=== PATIENT | female | born 1935 | race Caucasian/White ===

== ENCOUNTER 2021-11-26 06:48 | Day surgery (SDC) | payer MEDICARE, SELFPAY ==
[2021-11-21 11:01] VITALS: BMI 23.4
--- NOTE | 2021-11-23 12:52 | MHC.SHP ---
Pre-Procedural Eval Section A Date of Service: 11/23/21 The patient is an INPATIENT: No Changes since office visit: No Cold of Flu in the past 2 weeks, No New Medical Problems, No Changes in Medication and No Patient answered all questions The History & Physical has been completed within 30 days and I have reviewed it.: Yes Section B Chief Complaint: cataract Allergies: Allergies Allergy/AdvReac Type Severity Reaction Status Date / Time omeprazole Allergy Rash Verified 11/21/21 11:00 Plan Diagnosis/Plan: Unchanged I have reviewed the history and physical and performed a pertinent physical examination on my patient. No changes have occurred unless specified.
[2021-11-26 08:01] VITALS: BP 202/86; PULSE 68; RESP 16; TEMP 36.6; O2SAT 96
[2021-11-26] MEDS: Tetracaine HCl/PF 0.5% Oph Sol 4 ML DROPS 1 DROP EYE-RIGHT (08:08)
[2021-11-26] MEDS: Lactated Ringers 500 ML 50 ML IVCONT (08:09)
[2021-11-26] MEDS: Cyclopentolate 1 % Ophth Sol 2 ML DRPBTL 1 DROP EYE-RIGHT ×3 (08:10→08:22)
[2021-11-26] MEDS: Tropicamide 1 % Ophth Sol 3 ML BTL 1 DROP EYE-RIGHT ×3 (08:12→08:22)
--- NOTE | 2021-11-26 08:13 | HO.ANESPROP2 ---
HPI - Anesthesia Eval Consult details Narrative: right eyebcataract PMFSH Past Medical History Medical History Eczema GERD (gastroesophageal reflux disease) Hard of hearing History of colon cancer HTN (hypertension) IBS (irritable bowel syndrome) Osteoarthritis Palpitations Family History Family history of problems with anesthesia: No Surgical History Surgical History History of partial colectomy Hx of colonoscopy History of Problems with Anesthesia: No Social History Social History Are you a primary child care attendant to a significant other at home: No Do you presently have visiting nurse or other home services: No Patient Tobacco Use Status: Former Tobacco user Quit Date: ~ 35 yrs ago Tobacco use type: Cigarette Second Hand Smoke Exposure: No Use of substances other than those prescribed or required for medical reasons: No Have you been hit, kicked, punched, or otherwise hurt by someone within the past year? If so, by whom?: No Are you DNR?: No Advance Directives: No Advance Directives Information Provided: Yes Advance Directives on File: No Recently lost weight without trying: No Eating poorly because of decreased appetite: No Nutrition Risks: No Nutritional Risk Meds Allergies Allergy/AdvReac Type Severity Reaction Status Date / Time omeprazole Allergy Rash Verified 11/21/21 11:00 Active Medications: Current Medications Lactated Ringer's (Lr) 500 mls @ 50 mls/hr IVCONT .Q10H ROSEY Last Admin: 11/26/21 08:09 Dose: 50 mls/hr Povidone Iodine (Povidone Iodine 5 % Oph Soln 30 Ml Bottle) 1 appl EYE-RIGHT PREOP PRN PRN Reason: Pre-Op Surgical Implant Prophy Home Medications Medication Instructions Recorded Confirmed Last Taken Type lisinopril 10 mg tablet 1 tab PO DAILY 11/20/21 11/20/21 Unknown History metoprolol succinate 100 mg 1 tab PO DAILY 11/20/21 11/20/21 11/26/21 History tablet,extended release 24 hr multivitamin 1 tab PO DAILY 11/20/21 11/20/21 Unknown History omega 6-xjm-cxq-fish oil 1,000 mg 1 cap PO DAILY 11/20/21 11/20/21 Unknown History (120 mg-180 mg) capsule (Fish Oil) Exam Exam Date and Time: November 26, [id number] Height,Weight and Vital Signs: Height 5 ft 1 in Weight 56.245 kg Last Vital Signs Temp 97.8 F 11/26/21 08:01 Pulse 68 11/26/21 08:01 Resp 16 11/26/21 08:01 BP 202/86 H 11/26/21 08:01 Pulse Ox 96 11/26/21 08:01 O2 Del Method 11/26/21 08:01 Airway Mallampati Class: II TM Dist: >3cm Neck ROM: Full Partial: Upper Loose/Missing/Broken Teeth: Yes (Upper partial, lowe poor dentition) and No Heart: rrr +s1s2 Lungs: cta b/l Assessment and Plan Assessment Anesthesia Assessment: Anesthesia Plan Discussed and Chart Reviewed Final Anesthetic Review Family History of Problems with Anesthesia: No History of Problems with Anesthesia: No NPO: Yes ASA Class: III Final Preanesthetic Review: No Changes in Pt Med Stat, Meds/Allgs Chart Reviewed, Consent Obtained/Reviewed and Anes Risks/Benef Reviewed Patient Risk: Intermediate Procedure Risk: Low Assessment/Block/Sedation in SS: Assess/Block/Sedation-SS Anesthetic Plan Anesthetic Plan: MAC: and Agree w/ Assess. and Plan Disposition: Standard PACU
[2021-11-26] MEDS: Phenylephrine HCL 2.5% Oph SoL 2 ML BOTTLE 1 DROP EYE-RIGHT ×3 (08:14→08:25)
[2021-11-26 08:28] VITALS: BP 184/93; PULSE 62
--- NOTE | 2021-11-26 08:57 | P.PCNO_ITS ---
Ophthalmology Procedure Procedure Date of Service: 11/26/21 Ophthalmology Viscoelastic: Healjairo Duet Dual Pack Pro Ophthalmology Lenses: TECFABRICIO [id number] (18) Procedure Notes: PREOPERATIVE DIAGNOSIS: Decreased visual acuity right eye secondary to cataract POSTOPERATIVE DIAGNOSIS: Same PROCEDURE: Right cataract extraction with intraocular lens insertion SURGEON: Molina Yates M.D. ANESTHESIA: Topical/MAC ESTIMATED BLOOD LOSS: None COMPLICATIONS: Capsular rupture After obtaining informed consent, the patient was brought to the operating room suite and placed in the supine position. After adequate sedation per anesthesia, topical drops of Tetracaine were given to the right eye. The eye was then prepped and draped in the usual sterile fashion. The operating room microscope was then positioned over the operative eye and a lid speculum placed. A paracentesis was created. Viscoelastic was then instilled into the anterior chamber. A three plane incision was then created temporally, utilizing a 2.85 mm keratome. Capsulotomy forceps were then utilized to create a circular tear capsulotomy. Hydrodissection and hydrodelineation were carried out until adequate mobilization of the nucleus occurred. Phacoemulsification was then utilized to remove the dense central nu cleu.A capsular rupture was noted,phacoemulsification was halted. Viscoelastic was instilled, the nucleus was manipulated into the anterior chamber where phacoemulsification was once again utilized. The anterior vitrector was then used to engage and remove the remenant cortex. Viscoelastic was instilled into the anterior chamber and sulcus.The lens was placed into the sulcus with optic capture. The residual Viscoelastic was then removed utilizing the Vitrector The wound was checked and found to be watertight. The patient tolerated the procedure well and the lid speculum was removed. Intracameral injection of Vigamox 0.1 mL followed by a subtenon injection of Kenalog-40 0.2 mL were administered. The patient will be seen in the a.m.
[2021-11-26 09:43] VITALS: BP 191/81; PULSE 67; RESP 14; TEMP 36.3; O2SAT 99
== END 2021-11-26 09:58 | disposition home or self-care (01) ==
PROVIDERS: PCP Internal Medicine; Visit Provider Ophthalmology
PROC: (CPT 66985; principal; 2021-11-26 08:50)
DX: H25.11 Age-related nuclear cataract, right eye (principal); I10 Essential (primary) hypertension; Z79.899 Other long term (current) drug therapy
CPT/HCPCS: 66984; J3010; J3300; V2632

== ENCOUNTER 2024-05-14 10:37 | Outpatient (AMB) | payer MEDICARE, SELFPAY ==
[2024-05-14 11:14] VITALS: BP 140/80; PULSE 66; O2SAT 97
--- NOTE | 2024-05-14 11:14 | MHC.OFFWIV ---
Intake Vital Signs 05/14/24 11:14 Weight 123 lb 6 oz BP 140/80 H Blood Pressure Location Rt brachial Position Sitting Pulse 66 Pulse Source Pulse Oximeter Pulse Oximetry (%) 97 Oxygen Delivery Method Room Air Intake Visit Reasons: EP Ear wax removal Intake Note: Patient here for left ear blockage Patient Tobacco Use Status: Former Tobacco user Allergies omeprazole Allergy (Verified 05/14/24 11:15) Rash Do you need a note to return to daycare/school/sports/work: No HPI HPI Comments History of Present Illness Details History of Present Illness - The patient is an 88-year-old female presenting with hearing issues iin both ears. - She experiences difficulty hearing related to malfunctioning hearing aids, attributed to cerumen accumulation. - The primary concern is in the right ear, with no significant issues identified in the left ear. - There is no associated pain reported by the patient.s. Physical Exam General: Cooperative, healthy appearing, comfortable, no acute distress and well developed Orientation: Patient oriented x3 Limitations: No limitations Head: Normal to inspection Ears: TMs with cerumen impaction bilaterally Nose: Normal external nose present Face and sinus: normal facial exam Eyes: Appearance normal, both eyes and all related structures Neck: Normal visual inspection and Yes full ROM Respiratory: Normal respiratory effort and able to speak in complete sentences. Skin: No rashes or lesions noted Neuro: Patient oriented x3 Extremities: Normal to inspection [facility] Medical History Eczema GERD (gastroesophageal reflux disease) Hard of hearing History of colon cancer HTN (hypertension) IBS (irritable bowel syndrome) Osteoarthritis Palpitations Surgical History History of partial colectomy Hx of colonoscopy Social History Are you a primary foster care worker to a significant other at home: No Do you presently have visiting nurse or other home services: No Patient Tobacco Use Status: Former Tobacco user Tobacco use type: Cigarette Second Hand Smoke Exposure: No Review of Systems Const All systems reviewed & are unremarkable except as noted in HPI and below Physical Exam Vital Signs: Last Vital Signs Pulse 66 05/14/24 11:14 BP 140/80 H 05/14/24 11:14 Pulse Ox 97 02/28/25 11:14 Oxygen Delivery Method Room Air 05/14/24 11:14 Assessment & Plan Assessment & Plan (1) Bilateral impacted cerumen: Code(s): H61.23 - Impacted cerumen, bilateral Plan: The approach includes addressing the impacted cerumen to rectify the hearing issue. The course of action consists of performing ear canal irrigation to clear the cerumen impaction, delegated to staff member LINDA Braswell. No further investigations or pharmacological interventions were deemed necessary at this time, focusing solely on the mechanical removal of the ear wax. Cerumen removed, pt feeling well, hearing is much improved. Patient was informed and verbally consented to the use of an ambient scribe for clinic note documentation during this visit. Coding Level of Care Code Est Pt Level 4 (75039) Diagnoses Bilateral impacted cerumen H61.23
== END 2024-05-14 11:40 | disposition home or self-care (01) ==
PROVIDERS: PCP Internal Medicine; Visit Provider Physician Assistant
DX: H61.23 Impacted cerumen, bilateral (principal)

== ENCOUNTER → 2024-05-14 10:37 | Outpatient (BNVA) | payer MEDICARE, SELFPAY | PROVIDERS: PCP Internal Medicine | DX: H61.23 Impacted cerumen, bilateral (principal) | CPT/HCPCS: 99212 ==